=== PATIENT | male | born 2000 | race Caucasian/White ===

== ENCOUNTER 2020-09-13 07:33 | Emergency (ER) | payer OTHER ==
[2020-09-13 08:05] LABS: HEMOGLOBIN 14.6 gm/dl (14.0-17.5); RED BLOOD COUNT 4.78 M/UL (4.20-5.50); WHITE BLOOD COUNT 11.2 K/UL (4.5-11.0)
[2020-09-13 08:38] LABS: BUN/CREATININE RATIO 12 (0-10)
== END 2020-09-13 11:08 | disposition home or self-care (01) ==
LOC: ER1 07:33
PROVIDERS: Student in an Organized Health Care Education/Training Program
DX: R07.89 Other chest pain (principal); F17.210 Nicotine dependence, cigarettes, uncomplicated; Z20.822 Contact with and (suspected) exposure to COVID-19
CPT/HCPCS: 0240U; 71046; 80053; 82550; 82553; 83874; 83880; 84484; 85025; 93005; 99285